=== PATIENT | female | born 1940 | race Asian ===

== ENCOUNTER 2017-12-15 09:11 | Day surgery (SDC) | payer MEDICARE, MEDICAID ==
[~2017-12-15 09:11] MED LIST: ACET-66 PO; CALC500T62 PO; FISH1CAP51 PO; LEVO50TA11 PO; METF500T4 PO; METOPROLOL TARTRATE 50 MG TABLET PO ONE; MULT1TAB PO; OMEP20TA25 PO; RALO60 PO; SIMV40TA5 PO; VALS160T2 PO
[2017-12-15] MEDS ORDERED: METF850T2 PO (09:38)
[2017-12-15] MEDS ORDERED: ASPI-1182 PO (09:38)
[2017-12-15] MEDS ORDERED: PANT40TA25 PO (09:38)
[2017-12-15] MEDS ORDERED: ROSU20 PO (09:38)
[2017-12-15] MEDS ORDERED: AMLO-511 PO (09:38)
[2017-12-15] MEDS ORDERED: MULT-1103 PO (09:38)
[2017-12-15] MEDS ORDERED: METO25XL PO (09:38)
[2017-12-15] MEDS ORDERED: UBID50TA3 PO (09:38)
[2017-12-15] MEDS ORDERED: CHOL200016 PO (09:38)
[2017-12-15 09:57] LABS: ANION GAP 7 mmol/L (8-16); CALCIUM, TOTAL 9.1 mg/dL (8.8-10.5); CARBON DIOXIDE 29 mmol/L (22-29); CHLORIDE 106 mmol/L (98-107); CREATININE 0.85 mg/dL (0.60-1.30); GLOMERULAR FILTR. RATE CALC > 60 mL/min (>60); GLUCOSE,RANDOM 115 mg/dL (70-110); POTASSIUM 4.5 mmol/L (3.5-5.1); SODIUM SERUM 142 mmol/L (136-145); UREA NITROGEN, BLOOD 19 mg/dL (7-18)
[2017-12-15] MEDS ORDERED: METOPROLOL TARTRATE 5 MG/5 ML VIAL ONE (10:11)
[2017-12-15] MEDS ORDERED: NITROGLYCERIN 400 MCG/SUBLINGUAL SPRAY 4.9 GM BOTTLE SL ONE ×2 (10:11→11:07)
[2017-12-15] MEDS ORDERED: IOVERSOL 350 MG/ML 150 ML VIAL ONE (10:14)
[2017-12-15] MEDS ORDERED: SODIUM CHLORIDE 0.9% 100 ML ONE (10:14)
[2017-12-15] MEDS ORDERED: METOPROLOL TARTRATE 5 MG/5 ML VIAL IVP ONE (11:02)
[2017-12-15] MEDS ORDERED: UBID100C24 PO (11:41)
== END 2017-12-15 11:40 | disposition home or self-care (01) ==
LOC: SURGERY 09:11 → EDSTATUS 11:00 → SURGERY 11:40
PROVIDERS: ATTEND Internal Medicine Cardiovascular Disease
DX: I25.89 Other forms of chronic ischemic heart disease (principal); I20.8 Other forms of angina pectoris; Z79.84 Long term (current) use of oral hypoglycemic drugs; E03.9 Hypothyroidism, unspecified; M06.9 Rheumatoid arthritis, unspecified; E78.00 Pure hypercholesterolemia, unspecified; I10 Essential (primary) hypertension; E11.9 Type 2 diabetes mellitus without complications; Z88.6 Allergy status to analgesic agent; Z79.82 Long term (current) use of aspirin; Z98.42 Cataract extraction status, left eye; Z98.41 Cataract extraction status, right eye; Z79.899 Other long term (current) drug therapy; Z98.890 Other specified postprocedural states
CPT/HCPCS: 36415; 75574; 80048; 93005; J3490; J7050; Q9967